=== PATIENT | female | born 1975 | race African-American/Black ===

== ENCOUNTER 2017-11-21 07:18 | Emergency (ER) | payer BC ==
[2017-11-21] MEDS: MECLIZINE HCL 12.5 MG TABLET. PO (07:45)
[2017-11-21 07:48] LABS: URINE HCG POC HCG NEGATIVE (Negative)
[2017-11-21 07:52] LABS: BILIRUBIN,URINE NEGATIVE (NEG); CLARITY,URINE CLOUDY; COLOR,URINE YELLOW; GLUCOSE,URINE NEGATIVE (NEG); NITRITE,URINE NEGATIVE (NEG); PH,URINE 5.5; PROTEIN,URINE NEGATIVE (NEG-TRACE); UROBILINOGEN,URINE 0.2 mg/dL (0.2 mg/dL)
[2017-11-21 08:04] LABS: RBC,URINE TNTC /HPF (0-2); SQUAMOUS EPITHELIAL CELL,UR MOD /LPF
[2017-11-21 08:06] LABS: ADD MAN DIFF? NO
[2017-11-21 08:08] LABS: BACTERIA,URINE MOD /HPF (0-FEW)
[2017-11-21 08:09] LABS: BASO # 0.1 x10^3/uL (0.0-0.2); BASO % 1 % (0-3); EOS # 0.1 x10^3/uL (0.0-0.7); EOS % 2 % (0-3); HEMATOCRIT 38.1 % (36.0-47.0); HEMOGLOBIN 12.4 g/dL (12.0-15.5); LYMPH # 3.1 x10^3/uL (1.0-4.8); LYMPH % 34 % (24-48); MEAN CORPUSCULAR HEMOGLOBIN 25 pg (25-35); MEAN CORPUSCULAR HGB CONC 33 g/dL (31-37); MEAN CORPUSCULAR VOLUME 78 fL (79-100); MONO # 0.5 x10^3/uL (0.0-1.1); MONO % 5 % (0-9); NEUT # 5.4 x10^3uL (1.8-7.7); NEUT % 58 % (31-73); PLATELET COUNT 346 x10^3/uL (140-400); RED BLOOD COUNT 4.88 x10^6/uL (3.50-5.40); RED CELL DISTRIBUTION WIDTH 15.5 % (11.5-14.5); WHITE BLOOD COUNT 9.2 x10^3/uL (4.0-11.0)
[2017-11-21 08:28] LABS: ANION GAP 12 (6-14); BLOOD UREA NITROGEN 12 mg/dL (7-20); BUN/CREATININE RATIO 12 (6-20); CALCIUM 9.1 mg/dL (8.5-10.1); CARBON DIOXIDE 23 mmol/L (21-32); CHLORIDE 105 mmol/L (98-107); GFR 73.2; GLUCOSE 121 mg/dL (70-99); POTASSIUM 4.1 mmol/L (3.5-5.1); SODIUM 140 mmol/L (136-145)
[2017-11-21 08:29] LABS: TROPONINI < 0.017 ng/mL (0.000-0.055)
[2017-11-21 08:33] LABS: ALBUMIN 3.6 g/dL (3.4-5.0); ALBUMIN/GLOBULIN RATIO 0.9 (1.0-1.7); ALK PHOS 72 U/L (46-116); ALT (SGPT) 24 U/L (14-59); AST (SGOT) 14 U/L (15-37); CREATINE KINASE 231 U/L (26-192); LIPASE 77 U/L (73-393); TOTAL BILIRUBIN 0.4 mg/dL (0.2-1.0); TOTAL PROTEIN 7.8 g/dL (6.4-8.2)
[2017-11-21 08:36] LABS: CKMB INDEX 0.4 % (0-4); CREATINE KINASE 235 U/L (26-192)
[2017-11-21] MEDS ORDERED: IV NORMAL SALINE 1000ML BAG 1,000 ML IV (09:15)
[2017-11-21] MEDS ORDERED: ONDANSETRON PF 4 MG/2 ML VIAL. IV (09:15)
== END 2017-11-21 09:55 | disposition home or self-care (01) ==
LOC: ER 07:18
DX: R42 Dizziness and giddiness (principal); R05 Cough; J34.89 Other specified disorders of nose and nasal sinuses; N39.0 Urinary tract infection, site not specified
CPT/HCPCS: 36415; 70450; 71045; 80053; 81001; 81025; 82550; 82553; 83690; 84484; 85025; 85610; 93005; 99285-25; J8597